=== PATIENT | male | born 2000 | race Caucasian/White ===

== ENCOUNTER 2020-11-14 13:29 | Inpatient (IN) | payer SELFPAY ==
[2020-11-14 14:00] VITALS: BP 122/74; PULSE 89; RESP 20; TEMP 36.6; O2SAT 97
[2020-11-14] MEDS: nicotine 2 mg Gum BUCCAL ×2 (17:30→19:47)
[2020-11-14 22:00] VITALS: BP 121/76; PULSE 75; RESP 18; TEMP 36.8; O2SAT 96
[2020-11-15 06:00] VITALS: BP 95/57; PULSE 75; RESP 17; TEMP 36.9; O2SAT 96
[2020-11-15] MEDS: nicotine 2 mg Gum BUCCAL ×2 (08:30→16:31)
[2020-11-15] MEDS: fluoxetine 20 mg Capsule PO ×2 (08:30→18:50)
--- NOTE | 2020-11-15 12:25 | PM.NHP ---
Providers/Chief Complaint Admitting Physician: Benjamin Moreau MD Chief Complaint: SI HPI NPU History of Present Illness Nik Fuentes is a 20 year old male who presented to an outside hospital reporting that he was having significant difficulty with anxiety and feeling like maybe he needed his medications changed. He reports that he had a previous hospitalization in the [facility] and has tried to maintain outpatient treatment. He reports that he has been prescribed medication but unfortunately he has not been compliant at times more from forgetfulness than intentionally. He reported significant anxiety and panic and was transferred to [facility] and ultimately admitted to the neuropsychiatric unit for definitive treatment of those issues. He reports he smokes cigarettes occasionally, alcohol never, marijuana on special occasions and denies any other illicit drugs or any drug treatment. He expressed concerns that his medications either stopped working or worked enough or he did know exactly what. We discussed the risk benefits alternatives of increasing his Prozac, adding BuSpar for anxiety but otherwise continuing his current medications and he understood and agreed to be as documented in his note. He denies any history of suicide attempts and denies current thoughts to kill himself and denies ever feeling that way. Psychiatric history: As above. Substance abuse history: As above. Family history: Patient denies mental health or addiction issues on either side of the family and denies suicide attempts or completions in the family. Developmental history: He reports that there were no issues with his or delivery, that he learned to walk and talk about his development milestones on time as far as he knows. He does report he went to the school he did need special education classes reporting though that it took him 3 times for every 1 time to learn some things compared to other kids. Psychosocial history: He reports his mother and father were together when he was born and remain together. He reports that he has an older sister and 2 younger brothers that are a product of the same union. He reports his childhood was good and denies emotional, physical or sexual abuse. 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 Endorsing heterosexual with his longest relationship being about 3 months. He denies being , having children, being in the and reports he does believe in God. He reports his longest employment is about 2 years ago more. He currently lives in a house with his parents and one of his younger brothers. Legal history: He reports he did go to care home for about 8 hours 1 time in his life. Medical history: He reports no major medical issues but does have obesity. Meds NPU Home Medications Medication Instructions Recorded Confirmed Last Taken Type fluoxetine [Prozac] 20 mg PO DAILY 11/14/20 11/14/20 Unknown History hydroxyzine HCl 50 mg PO BEDTIME 11/14/20 11/14/20 Unknown History olanzapine [Zyprexa] 5 mg PO BEDTIME 11/14/20 11/14/20 Unknown History trazodone 50 mg PO BEDTIME 11/14/20 11/14/20 Unknown History Allergies Allergy/AdvReac Type Severity Reaction Status Date / Time Penicillins Allergy ALGY-Hives Verified 11/14/20 13:43 Vitals/I&O/Wt Last Vital Signs Temp 98.4 F 11/15/20 06:00 Pulse 75 11/15/20 06:00 Resp 17 11/15/20 06:00 BP 95/57 11/15/20 06:00 Pulse Ox 96 11/15/20 06:00 Weight last 48 hrs Weight 122.47 kg A&P Assessment and plan (1) Intellectual disability: Status: Acute (2) Depression: Status: Acute (3) Anxiety: Status: Acute Additional A&P Information This is a 20-year-old white male with a long history of borderline electro functioning versus intellectual disability, with recent depression and anxiety that has not been well managed which raise concerns about lethality. 1. Continue current medication. 2. Continue every 15 minute checks for safety. 3. Encourage individual, group and milieu therapies. 4. We will evaluate over the next 24 hours and consider discharge in the morning which would be as desired. Involuntary Hold Information 96 Hour Hold: 96 Hour Involuntary Admission: No Attestations NPU Medical Necessity Statement*: Inpatient hospitalization is medically necessary and the clinically appropriate intervention at this time. We will monitor medications and make changes as indicated. Patient will be in the hospital for over two midnights. Likely length of stay 1-3 days. Coding Level of Care Code Acute [employer] Manager for [employer] Fwd Diagnoses Intellectual disability F79 Depression F32.9 Anxiety F41.9
[2020-11-15 14:00] VITALS: BP 118/77; PULSE 71; RESP 20; TEMP 36.1; O2SAT 98
[2020-11-15] MEDS: BuSPIRONE 10 mg Tablet 15 MG PO (18:50)
[2020-11-15 21:28] VITALS: BP 126/85; PULSE 86; RESP 18; TEMP 36.7; O2SAT 97
[2020-11-15] MEDS: trazodone 50 mg Tablet PO (21:33)
[2020-11-15] MEDS: hyDROXYzine 25 mg Capsule 50 MG PO (21:33)
[2020-11-15] MEDS: OLANZapine 5 mg TABLET PO (21:33)
[2020-11-16 06:00] VITALS: BP 111/72; PULSE 61; RESP 18; TEMP 36.4; O2SAT 96
[2020-11-16] MEDS: BuSPIRONE 10 mg Tablet 15 MG PO (08:41)
[2020-11-16] MEDS: fluoxetine 20 mg Capsule 40 MG PO (08:41)
[2020-11-16] MEDS: nicotine 2 mg Gum BUCCAL (11:11)
--- NOTE | 2020-11-16 11:32 | PM.NDC ---
Diagnoses at Discharge Discharge Diagnosis (1) Intellectual disability: Status: Acute (2) Depression: Status: Acute (3) Anxiety: Status: Acute Reason for Visit Reason for Visit: SI Brief History: History of Present Illness Nik Fuentes is a 20 year old male who presented to an outside hospital reporting that he was having significant difficulty with anxiety and feeling like maybe he needed his medications changed. He reports that he had a previous hospitalization in the [facility] and has tried to maintain outpatient treatment. He reports that he has been prescribed medication but unfortunately he has not been compliant at times more from forgetfulness than intentionally. He reported significant anxiety and panic and was transferred to [facility] and ultimately admitted to the neuropsychiatric unit for definitive treatment of those issues. He reports he smokes cigarettes occasionally, alcohol never, marijuana on special occasions and denies any other illicit drugs or any drug treatment. He expressed concerns that his medications either stopped working or worked enough or he did know exactly what. We discussed the risk benefits alternatives of increasing his Prozac, adding BuSpar for anxiety but otherwise continuing his current medications and he understood and agreed to be as documented in his note. He denies any history of suicide attempts and denies current thoughts to kill himself and denies ever feeling that way. Psychiatric history: As above. Substance abuse history: As above. Family history: Patient denies mental health or addiction issues on either side of the family and denies suicide attempts or completions in the family. Developmental history: He reports that there were no issues with his or delivery, that he learned to walk and talk about his development milestones on time as far as he knows. He does report he went to the school he did need special education classes reporting though that it took him 3 times for every 1 time to learn some things compared to other kids. Psychosocial history: He reports his mother and father were together when he was born and remain together. He reports that he has an older sister and 2 younger brothers that are a product of the same union. He reports his childhood was good and denies emotional, physical or sexual abuse. 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 Endorsing heterosexual with his longest relationship being about 3 months. He denies being , having children, being in the and reports he does believe in God. He reports his longest employment is about 2 years ago more. He currently lives in a house with his parents and one of his younger brothers. Legal history: He reports he did go to half-way for about 8 hours 1 time in his life. Medical history: He reports no major medical issues but does have obesity. Hospital Course Hospital Course Nik presented to an outside hospital with depression, anxiety and concerns for lethality. He was transferred to [facility] and ultimately admitted to the neuropsychiatric unit for definitive treatment of those issues. On the unit he quickly acclimated to the individual, group and milieu therapies provided. He was mostly anxious about his medications not being monitored and adjusted as might be indicated. We initiated BuSpar for anxiety and increased his Prozac to 40 mg p.o. every morning with a marked improvement. He did have a cigarette discharge. During the hospitalization, patient had routine laboratory studies which were within normal limits except for few outliers. Additionally there was a general medical evaluation which was also within normal limits and revealed no new acute processes. Discharge Summary: At the time of discharge, psychosis and lethality were denied. Mood and anxiety were well managed. Patient endorsed a plan to follow-up with the aftercare recommendations of the treatment team. Patient was evaluated and deemed to be absent credible lethality, and had achieved the maximum benefit from an inpatient hospitalization, so was discharged. Involuntary Hold Information 96 Hour Hold: 96 Hour Involuntary Admission: No Mental Status Exam MSE Comments: This is an obese white male in hospital scrubs with appropriate grooming and limited eye contact. No abnormal movements except for mild psychomotor retardation. Cooperative with exam in no acute distress. Speech was more normal rate and volume. Mood described as less anxious, affect congruent. Thought process organized. Thought content: Patient denied suicidal or homicidal ideation, there were no delusions reported or noted, he denied any auditory or visual hallucinations. Attention and concentration appeared intact and memory appeared reliable but none were formally tested. He is alert and oriented x3. Insight and judgment appear fair, impulse control appears fair, and intellectual ability may be limited. Discharge Data Vitals: Last Vital Signs Temp 97.6 F 11/16/20 06:00 Pulse 61 11/16/20 06:00 Resp 18 11/16/20 06:00 BP 111/72 11/16/20 06:00 Pulse Ox 96 11/16/20 06:00 Discharge Plan Discharge Patient Disposition: Home Condition: Stable Prescriptions: New buspirone 10 mg Tablet 15 mg PO BID 30 Days Qty: 90 RF: 1 fluoxetine 20 mg Capsule 40 mg PO DAILY 30 Days Qty: 60 RF: 1 Continued trazodone 50 mg tablet 50 mg PO BEDTIME 30 Days Qty: 30 RF: 1 Zyprexa 5 mg tablet 5 mg PO BEDTIME 30 Days Qty: 30 RF: 1 hydroxyzine HCl 50 mg tablet 50 mg PO BEDTIME 30 Days Qty: 30 RF: 1 Discontinued fluoxetine [Prozac] 20 mg capsule 20 mg PO DAILY RF: 0 Discharge Orders: Discharge Order (Routine); Ordered 11/16/20 Ordered By: Benjamin Moreau Discharge Diet: Regular Discharge Activity: Resume usual activity Patient Instructions: Depression (DC), Generalized Anxiety Disorder (DC), Opioid Safety Discharge Attestations NPU Time Spent in Discharge Care*: greater than 30 min Specific Discharge Activities: Specific discharge activities: educating patient, discussing with high risk case manager/social workers/dc planners, documenting/other paperwork and evaluating patient/reviewing data Coding Level of Care Code Acute Chg FW DC note Diagnoses Intellectual disability F79 Depression F32.9 Anxiety F41.9
[2020-11-16 11:35] VITALS: BP 111/72; PULSE 61; RESP 18; TEMP 36.4; O2SAT 96
== END 2020-11-16 15:05 | disposition home or self-care (01) | DRG 881 ==
PROVIDERS: Admitting Provider Psychiatry & Neurology Psychiatry; Visit Provider Psychiatry & Neurology Psychiatry
DX: F32.9 Major depressive disorder, single episode, unspecified (principal); F79 Unspecified intellectual disabilities; F41.9 Anxiety disorder, unspecified; F17.210 Nicotine dependence, cigarettes, uncomplicated; F12.90 Cannabis use, unspecified, uncomplicated; E66.9 Obesity, unspecified; Z68.34 Body mass index [BMI] 34.0-34.9, adult